=== PATIENT | female | born 1990 | race Asian ===

== ENCOUNTER 2023-04-25 16:52 | Emergency (ER) | payer OTHER ==
[2023-04-25 17:19] VITALS: BP 119/53; PULSE 78; RESP 16; TEMP 98.7; BMI 25.7
[2023-04-25 18:43] LABS: HCG,QUALITATIVE URINE Positive
[2023-04-25 18:46] LABS: BASO % 0.4 % (0-2.0); EOS % 0.8 % (0-4.5); HEMATOCRIT 31.8 % (32.4-45.2); HEMOGLOBIN 10.1 GM/dL (10.7-15.3); MCH 22.2 pg (25.7-33.7); MCHC 31.8 g/dl (32.0-36.0); MEAN PLT VOLUME 7.9 fl (7.5-11.1); MONO % 6.1 % (3.8-10.2); NEUT % 69.7 % (42.8-82.8); PLATELET COUNT 282 10^3/uL (134-434); RBC 4.54 M/mm3 (3.60-5.2); RDW 16.8 % (11.6-15.6)
[2023-04-25 18:47] LABS: URINE APPEARANCE CLEAR; URINE BILIRUBIN NEGATIVE (NEGATIVE); URINE COLOR YELLOW; URINE GLUCOSE (UA) NEGATIVE (NEGATIVE); URINE KETONE NEGATIVE (NEGATIVE); URINE LEUK ESTERASE TRACE (NEGATIVE); URINE NITRITE NEGATIVE (NEGATIVE); URINE PROTEIN NEGATIVE (NEGATIVE); URINE UROBILINOGEN 0.2 mg/dL (0.2-1.0)
[2023-04-25 19:07] LABS: CALCIUM 8.7 mg/dL (8.5-10.1)
[2023-04-25 19:08] LABS: ALBUMIN 3.8 g/dl (3.4-5.0); BLOOD UREA NITROGEN 5.5 mg/dL (7-18)
[2023-04-25 19:11] LABS: CREATININE 0.6 mg/dL (0.55-1.3)
[2023-04-25 19:13] LABS: BILIRUBIN,TOTAL 0.2 mg/dL (0.2-1); TOT PROT 7.8 g/dl (6.4-8.2)
[2023-04-25 20:48] LABS: EPI CELLS 2.8 /uL (0-25.1); HYALINE CASTS 0.12 /uL (0-3.1); URINE BACTERIA 17.4 /uL (0-1359)
== END 2023-04-25 21:30 | disposition home or self-care (01) ==
LOC: JER 16:52
DX: O20.9 Hemorrhage in early pregnancy, unspecified (principal); O99.011 Anemia complicating pregnancy, first trimester; Z3A.01 Less than 8 weeks gestation of pregnancy
CPT/HCPCS: 36415; 76817-TC; 80053; 81003; 84702; 84703; 85025; 87086; 87186; 99284-25

== ENCOUNTER 2023-04-26 20:33 | Emergency (ER) | payer OTHER ==
[2023-04-26 20:48] VITALS: TEMP 97.6; BMI 25.7
[2023-04-26] MEDS ORDERED: ACETAMINOPHEN 325 MG TABLET (FP) PO ONE (21:04)
[2023-04-26] MEDS ORDERED: SODIUM CHLORIDE 0.9% 500 ML INFUS.BAG IV ONE (21:07)
[2023-04-26] MEDS ORDERED: morphine CARPU-JECT 2 MG/1 ML DISP.SYRIN IVPUSH ONE (21:07)
[2023-04-26] MEDS ORDERED: ACETAMINOPHEN 325 MG TABLET (FP) ONE (21:16)
[2023-04-26 21:52] LABS: BASO % 0.5 % (0-2.0); HEMATOCRIT 31.7 % (32.4-45.2); HEMOGLOBIN 10.1 GM/dL (10.7-15.3); LYMPH % 25.8 % (8-40); MCHC 31.9 g/dl (32.0-36.0); MEAN CELL VOLUME 69.1 fl (80-96); MEAN PLT VOLUME 7.8 fl (7.5-11.1); MONO % 4.9 % (3.8-10.2); NEUT % 67.8 % (42.8-82.8); PLATELET COUNT 281 10^3/uL (134-434); RDW 16.6 % (11.6-15.6); WHITE BLOOD COUNT 9.6 K/mm3 (4.0-10.0)
[2023-04-26 22:07] LABS: INR 1.2 (0.83-1.09); POTASSIUM 4.1 mmol/L (3.5-5.1); PROTHROMBIN TIME (PATIENT) 13.9 SEC (9.7-13.0)
[2023-04-26 22:09] LABS: CALCIUM 8.5 mg/dL (8.5-10.1)
[2023-04-26 22:10] LABS: ALBUMIN 3.6 g/dl (3.4-5.0); BLOOD UREA NITROGEN 6.4 mg/dL (7-18)
[2023-04-26 22:13] LABS: CREATININE 0.6 mg/dL (0.55-1.3)
[2023-04-26 22:14] LABS: TOT PROT 7.2 g/dl (6.4-8.2)
[2023-04-26 22:15] LABS: BILIRUBIN,TOTAL 0.2 mg/dL (0.2-1)
[2023-04-26 22:29] VITALS: BP 107/57; PULSE 62; RESP 20
[2023-04-26 22:41] LABS: ANISOCYTOSIS 1+; MACROCYTOSIS 1+; OVALOCYTE 1+
== END 2023-04-26 22:43 | disposition home or self-care (01) ==
LOC: JER 20:33
PROC: 3E033GC Introduction of Other Therapeutic Substance into Peripheral Vein, Percutaneous Approach (ICD-10-PCS; principal; 2023-04-26)
DX: O03.9 Complete or unspecified spontaneous abortion without complication (principal); R10.30 Lower abdominal pain, unspecified
CPT/HCPCS: 36415; 76817-TC; 80053; 85025; 85610; 86850; 86900; 86901; 99284-25